=== PATIENT | female | born 1965 | race Caucasian/White ===

== ENCOUNTER 2019-05-14 22:29 | Inpatient (IN) | payer SELFPAY ==
[~2019-05-14] VITALS: Ht 167.6 cm; Wt 97.1 kg
[2019-05-15] VITALS (7 sets, daily range): BP systolic 122–182; BP diastolic 53–100
[2019-05-15] MEDS ORDERED: hydrALAZINE 20 MG/ML VIAL. IVP PRN (01:30)
[2019-05-15] MEDS: ONDANSETRON PF 4 MG/2 ML VIAL. IV PRN ×2 (01:43→09:51)
[2019-05-15] MEDS: fentaNYL PF VIAL 100 MCG/2 ML VIAL IV PRN ×2 (01:44→09:52)
[2019-05-15] MEDS: IV NORMAL SALINE 1000ML BAG 1,000 ML IV SCH ×3 (01:45→21:42)
[2019-05-15] MEDS ORDERED: METF500T11 PO (03:53)
[2019-05-15] MEDS ORDERED: LISI1TAB20 PO (03:53)
--- NOTE | 2019-05-15 03:54 | NUR ---
Pt. arrived on unit at 0048 by gurney. SMITH. Pt. does not complain of pain but states she is "uncomfortable." Admission assessment done at this time. Pt. was able to walk to the bathroom ad sami. Call light within reach and bed in lowest position. Dr. Mi was paged for admission orders. Will continue to monitor.
[2019-05-15 04:59] LABS: BASO # 0.1 x10^3/uL (0.0-0.2); BASO % 0 % (0-3); EOS # 0.2 x10^3/uL (0.0-0.7); EOS % 1 % (0-3); HEMATOCRIT 38.8 % (36.0-47.0); HEMOGLOBIN 12.8 g/dL (12.0-15.5); LYMPH # 1.7 x10^3/uL (1.0-4.8); LYMPH % 11 % (24-48); MEAN CORPUSCULAR HEMOGLOBIN 27 pg (25-35); MEAN CORPUSCULAR HGB CONC 33 g/dL (31-37); MEAN CORPUSCULAR VOLUME 82 fL (79-100); MONO # 1.1 x10^3/uL (0.0-1.1); MONO % 8 % (0-9); NEUT # 11.5 x10^3/uL (1.8-7.7); NEUT % 79 % (31-73); PLATELET COUNT 349 x10^3/uL (140-400); RED BLOOD COUNT 4.75 x10^6/uL (3.50-5.40); RED CELL DISTRIBUTION WIDTH 16.1 % (11.5-14.5); WHITE BLOOD COUNT 14.5 x10^3/uL (4.0-11.0)
[2019-05-15 05:16] LABS: ALBUMIN 3.2 g/dL (3.4-5.0); ALBUMIN/GLOBULIN RATIO 0.8 (1.0-1.7); CALCIUM 8.7 mg/dL (8.5-10.1); CREATININE 0.7 mg/dL (0.6-1.0); GFR 87.9; POTASSIUM 3.5 mmol/L (3.5-5.1); TOTAL BILIRUBIN 0.3 mg/dL (0.2-1.0); TOTAL PROTEIN 7.3 g/dL (6.4-8.2)
--- NOTE | 2019-05-15 07:29 | NUR ---
Pt. states she is not allergic to oxycodone and tylenol. Allergies were taken off of oct. Ileana RN was notified of changes.
--- NOTE | 2019-05-15 10:19 | HP ---
ADMIT DATE: 05/15/2019 HISTORY OF PRESENT ILLNESS: The patient is a 53-year-old female patient who was seen last night at [facility] Emergency Room with a complaint of severe right upper quadrant pain. She also complained of recurrent bouts of nausea, vomiting, and she stopped taking her medication for blood pressure and hypertension as she has been extremely nauseous. She apparently was seen on 04/10/[address] [facility]. At that time, she apparently was diagnosed with acute cholecystitis. At that time, she was found to have cholelithiasis with borderline gallbladder wall thickening and she has a large calcified stone in the gallbladder neck. However, at that time there is no pericholecystic fluid. Images of her pelvis showed that there is somewhat heterogenous enlarged uterus, urinary bladder is nondistended, no free fluid or free air. She has scattered diverticula within the distal colon. She was offered surgery at that time, but she declined as she has just started a new job and was trying to postpone the treatment; however, over the last week. She has been complaining of worsening abdominal pain and inability to eat or take her medication and therefore, she was evaluated again in the Emergency Room last night and her lab work showed that she has mild leukocytosis and was transferred to [facility] to consult the surgical team for laparoscopic cholecystectomy. When I saw her this morning, she continued to complain of severe pain and also nausea, but no vomiting. Denied any fevers, chills, or rigors. PAST MEDICAL HISTORY: Significant for hypertension and type 2 diabetes. PAST SURGICAL HISTORY: Significant for left total knee arthroplasty, appendectomy, and bilateral myringotomy. ALLERGIES: SHE IS ALLERGIC TO PERCOCET. MEDICATIONS: She is currently on lisinopril 20/25 one tablet once a day and metformin 500 mg twice a day. FAMILY HISTORY: She has one sister who has irritable bowel syndrome and brother, who is healthy. Her father at the age of 63 because of complication of diabetes. Mother of cerebrovascular accident and was seemed to be cholangiocarcinoma. SOCIAL HISTORY: She is single, has one daughter. She continued to smoke up to a pack a day, does not drink alcohol or use recreational drugs. 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 PHYSICAL EXAMINATION: GENERAL: On examining her this morning, she was resting almost flat in bed, in no apparent respiratory distress. No pallor, jaundice, cyanosis, or thyromegaly. No jugular venous distension. No limb edema. VITAL SIGNS: Her heart rate was 66, blood pressure was 169/75, temperature was 98, respiratory rate was 18, and oxygen saturation was 94% on room air. HEAD, EYES, EARS, NOSE AND THROAT: Showed normocephalic and atraumatic. NECK: Supple. CARDIAC: Showed normal first and second heart sounds. No gallop or murmur. CHEST: Clear to auscultation. No crepitation or rhonchi. ABDOMEN: Distended, soft and nontender. No guarding or rigidity. No organomegaly. All hernial orifices are intact. Bowel sounds are present. She has tenderness mostly in the right upper quadrant. NEUROLOGIC: She is awake, alert, responding appropriately. All cranial nerves are intact. EXTREMITIES: She moves extremities without difficulty. She ambulates without assistance or assistive devices. LABORATORY DATA: Showed a white cell count of 14,500, hemoglobin 12.8, hematocrit 38.8, MCV 82, and platelet count of 349,000 with normal manual differential. Her serum sodium was 138, potassium 3.5, chloride 103, bicarbonate 27, anion gap of 8, BUN 10, creatinine 0.3, estimated GFR was 88 mL per minute, her glucose was 177, and calcium was 8.7. Total bilirubin, AST, ALT were normal, alkaline phosphatase slightly elevated, total protein was 7.3, and albumin was 3.2. ASSESSMENT AND PLAN: In summary, this is a 53-year-old female patient, who has acute cholecystitis. Other medical problems include hypertension and type 2 diabetes. PLAN: Plan is to keep her n.p.o., continue with IV fluid, and IV pain medication. I will also add IV antibiotic as she has leukocytosis and we have consulted the surgical team for definitive surgery in the form of laparoscopic cholecystectomy. ANNE-MARIE ROJAS MD DR: CHRISTOPHER/anaid JOB#: [id number] / [id number]
[2019-05-15] MEDS ORDERED: IV RINGERS,LACTATED 1000ML 1,000 ML IV SCH (10:53)
[2019-05-15] MEDS ORDERED: HYDROmorphone 2 MG/ML VIAL IV PRN (11:00)
[2019-05-15] MEDS ORDERED: ONDANSETRON PF 4 MG/2 ML VIAL. IV PRN (11:00)
[2019-05-15] MEDS ORDERED: MORPHINE SULFATE 2 MG/ML VIAL. IV PRN (11:00)
[2019-05-15] MEDS ORDERED: PROCHLORPERAZINE 10 MG/2 ML VIAL. IV PRN (11:00)
[2019-05-15] MEDS ORDERED: fentaNYL PF VIAL 100 MCG/2 ML VIAL IV PRN ×2 (11:00)
[2019-05-15] MEDS ORDERED: SURGICEL HEMOSTAT 4X8 EACH. ONE (11:46)
[2019-05-15] MEDS ORDERED: IOHEXOL 300 MG/ML 50 ML VIAL. ONE (11:46)
[2019-05-15] MEDS ORDERED: BUPIVACAINE MPF 0.5% 30 ML VIAL. ONE (11:46)
[2019-05-15] MEDS ORDERED: DEXAMETHASONE SOD PHOS 4 MG/ML VIAL ONE (12:06)
[2019-05-15] MEDS ORDERED: ONDANSETRON PF 4 MG/2 ML VIAL. ONE (12:06)
[2019-05-15] MEDS ORDERED: PROPOFOL 20 ML IV ONE (12:06)
[2019-05-15] MEDS ORDERED: LIDOCAINE 2% PF 5 ML VIAL. ONE (12:06)
[2019-05-15] MEDS ORDERED: fentaNYL PF VIAL 100 MCG/2 ML VIAL ONE ×2 (12:07→13:42)
[2019-05-15] MEDS ORDERED: ROCURONIUM 50 MG/5 ML VIAL. ONE (12:07)
[2019-05-15] MEDS ORDERED: NEOSTIGMINE METHYLSULFATE 5 MG/5 ML SYRINGE. ONE (12:13)
[2019-05-15] MEDS ORDERED: GLYCOPYRROLATE 1 MG/5 ML VIAL. ONE (12:13)
--- NOTE | 2019-05-15 12:33 | PDOC2 ---
CONSULT Date of Consult Date of Consult DATE: 05/15/19 TIME: 12:29 History of Present Illness Reason for Visit: The patient is a 53 year old female who reported to the ER at [facility] due to abdominal pain. She's been experiencing similar bouts of pain since last month. At that time she was diagnosed with gallstones with recommendation for surgical intervention. She postponed pursuing treatment but continued to have problems. She describes bouts of pain in the upper abdomen with radiation to the chest and back. She has had some nausea and worse symptoms after eating. While in the ER a CT scan was done showing gallstones and likely inflammatory changes. Past Medical History Past Medical History diabetes, hypertension Past Surgical History Past Surgical History appendectomy, knee surgery, ear surgery as a child Social History <1 pack per day ALCOHOL: rare Current Medications Current Medications Current Medications Hydralazine HCl (Apresoline Inj) 10 mg PRN Q4HRS PRN IVP ELEVATED BP, SEE COMMENTS; Start 05/15/19 at 01:30 Ondansetron HCl (Zofran) 4 mg PRN Q6HRS PRN IV NAUSEA/VOMITING Last administered on 05/15/19at 09:52; Start 05/15/19 at 01:30 Sodium Chloride 1,000 ml @ 100 mls/hr Q10H IV Last administered on 05/15/19at 12:00; Start 05/15/19 at 01:30 Fentanyl Citrate (Fentanyl 2ml Vial) 50 mcg PRN Q3HRS PRN IV PAIN Last administered on 05/15/19at 09:52; Start 05/15/19 at 01:30 Ondansetron HCl (Zofran) 4 mg PRN Q6HRS PRN IV NAUSEA/VOMITING; Start 05/15/19 at 11:00; Stop 05/15/19 at 20:00 Fentanyl Citrate (Fentanyl 2ml Vial) 25 mcg PRN Q5MIN PRN IV MILD PAIN 1-3; Start 05/15/19 at 11:00; Stop 05/15/19 at 20:00 Fentanyl Citrate (Fentanyl 2ml Vial) 50 mcg PRN Q5MIN PRN IV MODERATE TO SEVERE PAIN; Start 05/15/19 at 11:00; Stop 05/15/19 at 20:00 Morphine Sulfate (Morphine Sulfate) 1 mg PRN Q10MIN PRN IV SEVERE PAIN 7-10; Start 05/15/19 at 11:00; Stop 05/15/19 at 20:00 Ringer's Solution 1,000 ml @ 30 mls/hr Q24H IV ; Start 05/15/19 at 10:53; Stop 05/15/19 at 22:52 Hydromorphone HCl (Dilaudid) 0.5 mg PRN Q10MIN PRN IV SEV PAIN, Second choice; Start 05/15/19 at 11:00; Stop 05/15/19 at 20:00 Prochlorperazine Edisylate (Compazine) 5 mg PACU PRN PRN IV NAUSEA, MRX1; Start 05/15/19 at 11:00; Stop 05/15/19 at 20:00 Iohexol (Omnipaque 300 Mg/ml) 50 ml STK-MED ONCE .ROUTE ; Start 05/15/19 at 11:46; Stop 05/15/19 at 11:46; Status DC Cellulose (Surgicel Hemostat 4x8) 1 each STK-MED ONCE .ROUTE ; Start 05/15/19 at 11:46; Stop 05/15/19 at 11:47; Status DC Bupivacaine HCl (Sensorcaine Mpf 0.5%) 30 ml STK-MED ONCE .ROUTE ; Start 04/26 09/12 at 11:46; Stop 05/15/19 at 11:47; Status DC Ondansetron HCl (Zofran) 4 mg STK-MED ONCE .ROUTE ; Start 05/15/19 at 12:06; Stop 05/15/19 at 12:07; Status DC Propofol 20 ml @ As Directed STK-MED ONCE IV ; Start 05/15/19 at 12:06; Stop 05/15/19 at 12:07; Status DC Lidocaine HCl (Lidocaine Pf 2% Vial) 5 ml STK-MED ONCE .ROUTE ; Start 05/15/19 at 12:06; Stop 05/15/19 at 12:07; Status DC Dexamethasone Sodium Phosphate (Decadron) 4 mg STK-MED ONCE .ROUTE ; Start 05/15/19 at 12:06; Stop 05/15/19 at 12:07; Status DC Fentanyl Citrate (Fentanyl 2ml Vial) 100 mcg STK-MED ONCE .ROUTE ; Start 05/15/19 at 12:07; Stop 05/15/19 at 12:07; Status DC Rocuronium Powell (Zemuron) 50 mg STK-MED ONCE .ROUTE ; Start 05/15/19 at 12:07; Stop 05/15/19 at 12:07; Status DC Glycopyrrolate (Robinul) 1 mg STK-MED ONCE .ROUTE ; Start 05/15/19 at 12:13; Stop 05/15/19 at 12:13; Status DC Neostigmine Methylsulfate (Neostigmine Methylsulfate) 5 mg STK-MED ONCE .ROUTE ; Start 05/15/19 at 12:13; Stop 05/15/19 at 12:13; Status DC Active Scripts Active Reported Lisinopril-Hctz 20-25 Mg Tab (Lisinopril/Hydrochlorothiazide) 1 Each Tablet 1 Tab PO DAILY Metformin Hcl Er (Metformin Hcl) 500 Mg Tab.er.24h 500 Mg PO BIDWMEALS Allergies Allergies: Coded Allergies: No Known Drug Allergies (Unverified , 05/15/19) ROS PSYCHOLOGICAL ROS: No: Anxiety, Behavioral Disorder, Concentration difficultie, Decreased libido, Depression, Disorientation, Hallucinations, Hostility, Irritablity, Memory difficulties, Mood Swings, Obsessive thoughts, Physical abuse, Sexual abuse, Sleep disturbances, Suicidal ideation, Other Eyes: No Blurry vision, No Decreased vision, No Double vision, No Dry eyes, No Excessive tearing, No Eye Pain, No Itchy Eyes, No Loss of vision, No Photophobia, No Scotomata, No Uses contacts, No Uses glasses, No Other HEENT: No: Heacaches, Visual Changes, Hearing change, Nasal congestion, Nasal d ischarge, Oral lesions, Sinus pain, Sore Throat, Epistaxis, Sneezing, Snoring, Tinnitus, Vertigo, Vocal changes, Other ALLERGY AND IMMUNOLOGY: No: Hives, Insect Bite Sensitivity, Itchy/Watery Eyes, Nasal Congestion, Post Nasal Drip, Seasonal Allergies, Other Hematological and Lymphatic: No: Bleeding Problems, Blood Clots, Blood Transfusions, Brusing, Night Sweats, Pallor, Swollen Lymph Nodes, Other ENDOCRINE: No: Breast Changes, Galactorrhea, Hair Pattern Changes, Hot Flashes, Malaise/lethargy, Mood Swings, Palpitations, Polydipsia/polyuria, Skin Changes, Temperature Intolerance, Unexpected Weight Changes, Other Respiratory: No: Cough, Hemoptysis, Orthopnea, Pleuritic Pain, Shortness of breath, SOB with excertion, Sputum Changes, Stridor, Tachypnea, Wheezing, Other Cardiovascular: No Chest Pain, No Palpitations, No Orthopnea, No Paroxysmal Noc. Dyspnea, No Edema, No Lt Headedness, No Other Gastrointestinal: Yes Nausea, Yes Abdominal Pain Genitourinary: No Dysuria, No Frequency, No Incontinence, No Hematuria, No Retention, No Discharge, No Urgency, No Pain, No Flank Pain, No Other, No , No , No , No , No , No , No Musculoskeletal: No Gait Disturbance, No Joint Pain, No Joint Stiffness, No Anais nt Swelling, No Muscle Pain, No Muscular Weakness, No Pain In:, No Swelling In:, No Other Neurological: No Behavorial Changes, No Bowel/Bladder ControlChng, No Confusion, No Dizziness, No Gait Disturbance, No Headaches, No Impaired Co ord/balance, No Memory Loss, No Numbness/Tingling, No Seizures, No Speech Problems, No Tremors, No Visual Changes, No Weakness, No Other Skin: No Dry Skin, No Eczema, No Hair Changes, No Lumps, No Mole Changes, No Mottling, No Nail Changes, No Pruritus, No Rash, No Skin Lesion Changes, No Other, No Acne Physical Exam General: Alert, Oriented X3 Lungs: Clear to auscultation Heart: Regular rate Abdomen: Soft (obese, tender RUQ) Extremities: No clubbing, No cyanosis Skin: No rashes Neuro: Normal speech, Strength at 5/5 X4 ext Psych/Mental Status: Mental status NL MUSCULOSKELETAL: No deformity Vitals VITALS Vital Signs Date Time Temp Pulse Resp B/P (MAP) Pulse Ox O2 Delivery O2 Flow Rate FiO2 05/15/19 11:00 98.0 75 18 182/100 (127) 97 Room Air 98.0 Labs Labs Laboratory Tests Test 05/15/19 04:35 05/15/19 07:22 05/15/19 07:24 05/15/19 11:28 White Blood Count 14.5 x10^3/uL (4.0-11.0) Red Blood Count 4.75 x10^6/uL (3.50-5.40) Hemoglobin 12.8 g/dL (12.0-15.5) Hematocrit 38.8 % (36.0-47.0) Mean Corpuscular Volume 82 fL (79-100) Mean Corpuscular Hemoglobin 27 pg (25-35) Mean Corpuscular Hemoglobin Concent 33 g/dL (31-37) Red Cell Distribution Width 16.1 % (11.5-14.5) Platelet Count 349 x10^3/uL (140-400) Neutrophils (%) (Auto) 79 % (31-73) Lymphocytes (%) (Auto) 11 % (24-48) Monocytes (%) (Auto) 8 % (0-9) Eosinophils (%) (Auto) 1 % (0-3) Basophils (%) (Auto) 0 % (0-3) Neutrophils # (Auto) 11.5 x10^3/uL (1.8-7.7) Lymphocytes # (Auto) 1.7 x10^3/uL (1.0-4.8) Monocytes # (Auto) 1.1 x10^3/uL (0.0-1.1) Eosinophils # (Auto) 0.2 x10^3/uL (0.0-0.7) Basophils # (Auto) 0.1 x10^3/uL (0.0-0.2) Sodium Level 138 mmol/L (136-145) Potassium Level 3.5 mmol/L (3.5-5.1) Chloride Level 103 mmol/L (98-107) Carbon Dioxide Level 27 mmol/L (21-32) Anion Gap 8 (6-14) Blood Urea Nitrogen 10 mg/dL (7-20) Creatinine 0.7 mg/dL (0.6-1.0) Estimated GFR (Cockcroft-Gault) 87.9 BUN/Creatinine Ratio 14 (6-20) Glucose Level 177 mg/dL (70-99) Calcium Level 8.7 mg/dL (8.5-10.1) Total Bilirubin 0.3 mg/dL (0.2-1.0) Aspartate Amino Transf (AST/SGOT) 25 U/L (15-37) Alanine Aminotransferase (ALT/SGPT) 22 U/L (14-59) Alkaline Phosphatase 128 U/L (46-116) Total Protein 7.3 g/dL (6.4-8.2) Albumin 3.2 g/dL (3.4-5.0) Albumin/Globulin Ratio 0.8 (1.0-1.7) Glucose (Fingerstick) 194 mg/dL (70-99) 184 mg/dL (70-99) 159 mg/dL (70-99) Laboratory Tests Test 05/15/19 04:35 05/15/19 07:22 05/15/19 07:24 05/15/19 11:28 White Blood Count 14.5 x10^3/uL (4.0-11.0) Red Blood Count 4.75 x10^6/uL (3.50-5.40) Hemoglobin 12.8 g/dL (12.0-15.5) Hematocrit 38.8 % (36.0-47.0) Mean Corpuscular Volume 82 fL (79-100) Mean Corpuscular Hemoglobin 27 pg (25-35) Mean Corpuscular Hemoglobin Concent 33 g/dL (31-37) Red Cell Distribution Width 16.1 % (11.5-14.5) Platelet Count 349 x10^3/uL (140-400) Neutrophils (%) (Auto) 79 % (31-73) Lymphocytes (%) (Auto) 11 % (24-48) Monocytes (%) (Auto) 8 % (0-9) Eosinophils (%) (Auto) 1 % (0-3) Basophils (%) (Auto) 0 % (0-3) Neutrophils # (Auto) 11.5 x10^3/uL (1.8-7.7) Lymphocytes # (Auto) 1.7 x10^3/uL (1.0-4.8) Monocytes # (Auto) 1.1 x10^3/uL (0.0-1.1) Eosinophils # (Auto) 0.2 x10^3/uL (0.0-0.7) Basophils # (Auto) 0.1 x10^3/uL (0.0-0.2) Sodium Level 138 mmol/L (136-145) Potassium Level 3.5 mmol/L (3.5-5.1) Chloride Level 103 mmol/L (98-107) Carbon Dioxide Level 27 mmol/L (21-32) Anion Gap 8 (6-14) Blood Urea Nitrogen 10 mg/dL (7-20) Creatinine 0.7 mg/dL (0.6-1.0) Estimated GFR (Cockcroft-Gault) 87.9 BUN/Creatinine Ratio 14 (6-20) Glucose Level 177 mg/dL (70-99) Calcium Level 8.7 mg/dL (8.5-10.1) Total Bilirubin 0.3 mg/dL (0.2-1.0) Aspartate Amino Transf (AST/SGOT) 25 U/L (15-37) Alanine Aminotransferase (ALT/SGPT) 22 U/L (14-59) Alkaline Phosphatase 128 U/L (46-116) Total Protein 7.3 g/dL (6.4-8.2) Albumin 3.2 g/dL (3.4-5.0) Albumin/Globulin Ratio 0.8 (1.0-1.7) Glucose (Fingerstick) 194 mg/dL (70-99) 184 mg/dL (70-99) 159 mg/dL (70-99) Assessment/Plan Assessment/Plan 53 year old female with abdominal pain, suspect calculous cholecystitis. Recommend lap garrison. I reviewed the details and risks of surgery with the patient. She understands and would like to proceed. CELESTINA MANCILLA MD May 15, 2019 12:33
[2019-05-15] MEDS ORDERED: SUCCINYLCHOLINE 200 MG/10 ML VIAL. ONE (13:24)
[2019-05-15] MEDS ORDERED: SEVOFLURANE 61 TO 120 MINUTES. IH ONE (14:10)
--- NOTE | 2019-05-15 14:23 | RAD ---
Intraoperative cholangiogram with fluoroscopy: Reason for examination: Laparoscopic cholecystectomy. Intraoperative cholangiogram was performed with fluoroscopy. Total fluoroscopic time was 0.1 minute. 2 images were obtained. Contrast was administered into the cystic duct remnant and there is filling of the common bile duct with drainage into the duodenum. No retained stones were identified. IMPRESSION: Common bile duct is patent to the duodenum. No retained stones evident on intraoperative cholangiogram. Electronically signed by: Edith Post MD (05/15/2019 2:20 PM) [id number]
[2019-05-15] MEDS ORDERED: KETOROLAC 30 MG/ML VIAL. ONE (14:31)
--- NOTE | 2019-05-15 14:37 | PDOC4 ---
Operative Note Operative Note Operative Note: Preoperative Diagnosis: Acute cholecystitis Postoperative Diagnosis: Same Procedure: Laparoscopic cholecystectomy with intraoperative cholangiogram Surgeon: Diego Train System Operator: Claudia TRONCOSO Anesthesia: Gen. Estimated Blood Loss: 20 mL Specimen: Gallbladder to pathology Drains: None Complications: None Indications: The patient is a 53-year-old female who was admitted with severe upper abdominal pain. Her evaluation is consistent with acute cholecystitis. Surgical treatment was offered by means of a laparoscopic cholecystectomy. The risks of surgery were discussed which include bleeding, infection, bile duct injury, bile leak, pain, the potential for additional surgeries or procedures. The patient understands and would like to proceed. Description: The patient was taken to the operating room and laid supine on the operating table. General anesthesia was performed. The abdomen was prepped with ChloraPrep and draped in a standard surgical fashion. A small infraumbilical incision was made with a scalpel. The Veress needle was then inserted and a pneumoperitoneum was then created. A 5 mm trocar was then inserted and the laparoscope was introduced. In the upper midabdomen an 11 mm trocar was inserted and in the right upper quadrant two 5 mm trochars were inserted. The gallbladder was initially obscured by omentum due to an inflammatory reaction. The omentum was peeled away revealing a thick walled and edematous gallbladder consistent with acute cholecystitis. Approximately 55 mL of bilious fluid was aspirated providing gallbladder decompression. The gallbladder was retracted cephalad. The cystic duct was dissected free from surrounding tissues. One clip was placed on the duct near the gallbladder junction. An opening was made in the duct and a cholangiocatheter placed within and secured with a clip. Using contrast dye and fluoroscopy an intraoperative cholangiogram was performed that appeared unremarkable. The clip and catheter were then withdrawn. Two clips were placed on the cystic duct and it was divided. The cystic artery was then identified, dissected free, doubly clipped and divided as well. The gallbladder was then mobilized away from the liver with cautery. A small piece of Surgicel was placed on the upper portion of the gallbladder fossa to assist with hemostasis. The gallbladder was then placed in an endoscopic bag and extracted at the superior trocar site. The fascia there was closed with an 0 PDS sutures. All blood and irrigation fluid was suctioned and hemostasis was good. The remaining ports were removed and the pneumoperitoneum was relieved. The skin incisions were closed using 4-0 Monocryl suture. Steri-Strips and dressings were then applied. The patient tolerated the procedure well and was sent to the recovery room in stable condition. At the end of the case all counts were correct. CELESTINA MANCILLA MD May 15, 2019 14:37
[2019-05-15] MEDS ORDERED: oxyCODONE/APAP 5/325 1 TAB TABLET PO PRN ×2 (14:45)
--- NOTE | 2019-05-15 22:00 | NUR ---
Pt. doing well. Denies need for pain meds currently, has voided and ambulated halls without difficulty. Will continue to monitor.
[2019-05-16 03:03] VITALS: BP 108/54
[2019-05-16 05:57] LABS: HEMATOCRIT 36.8 % (36.0-47.0); HEMOGLOBIN 12.1 g/dL (12.0-15.5); RED BLOOD COUNT 4.52 x10^6/uL (3.50-5.40); WHITE BLOOD COUNT 18.4 x10^3/uL (4.0-11.0)
[2019-05-16 06:18] LABS: ALBUMIN/GLOBULIN RATIO 0.7 (1.0-1.7); CREATININE 0.7 mg/dL (0.6-1.0); GFR 87.9; POTASSIUM 3.7 mmol/L (3.5-5.1); TOTAL BILIRUBIN 0.3 mg/dL (0.2-1.0); TOTAL PROTEIN 7.2 g/dL (6.4-8.2)
[2019-05-16 07:00] VITALS: BP 138/72
[2019-05-16] MEDS: IV NORMAL SALINE 1000ML BAG 1,000 ML IV SCH (07:23)
[2019-05-16] MEDS ORDERED: hydroCHLOROthiazide 25 MG TABLET PO SCH (09:00)
[2019-05-16] MEDS ORDERED: LISINOPRIL 20 MG TABLET PO SCH (09:00)
--- NOTE | 2019-05-16 10:33 | PDOC ---
PROGRESS NOTES Subjective Subjective doing well Objective Objective Vital Signs Date Time Temp Pulse Resp B/P (MAP) Pulse Ox O2 Delivery O2 Flow Rate FiO2 05/16/19 08:24 67 138/72 05/16/19 07:35 Room Air 05/16/19 07:00 98.1 16 96 98.1 05/15/19 16:15 2 Intake and Output 05/16/19 07:00 Intake Total 3380 ml Output Total 70 ml Balance 3310 ml Intake Oral 830 ml IV Total 2550 ml Output Urine Total 50 ml Estimated Blood Loss 20 ml # Voids 2 Physical Exam Abdomen: Soft Assessment Assessment acute cholecystitis, POD 1 lap garrison Plan Plan of Care ok to discharge Comment Review of Relevant I have reviewed the following items francis (where applicable) has been applied. Labs Laboratory Tests Test 05/15/19 04:35 05/15/19 07:22 05/15/19 07:24 05/15/19 11:28 White Blood Count 14.5 x10^3/uL (4.0-11.0) Red Blood Count 4.75 x10^6/uL (3.50-5.40) Hemoglobin 12.8 g/dL (12.0-15.5) Hematocrit 38.8 % (36.0-47.0) Mean Corpuscular Volume 82 fL (79-100) Mean Corpuscular Hemoglobin 27 pg (25-35) Mean Corpuscular Hemoglobin Concent 33 g/dL (31-37) Red Cell Distribution Width 16.1 % (11.5-14.5) Platelet Count 349 x10^3/uL (140-400) Neutrophils (%) (Auto) 79 % (31-73) Lymphocytes (%) (Auto) 11 % (24-48) Monocytes (%) (Auto) 8 % (0-9) Eosinophils (%) (Auto) 1 % (0-3) Basophils (%) (Auto) 0 % (0-3) Neutrophils # (Auto) 11.5 x10^3/uL (1.8-7.7) Lymphocytes # (Auto) 1.7 x10^3/uL (1.0-4.8) Monocytes # (Auto) 1.1 x10^3/uL (0.0-1.1) Eosinophils # (Auto) 0.2 x10^3/uL (0.0-0.7) Basophils # (Auto) 0.1 x10^3/uL (0.0-0.2) Sodium Level 138 mmol/L (136-145) Potassium Level 3.5 mmol/L (3.5-5.1) Chloride Level 103 mmol/L (98-107) Carbon Dioxide Level 27 mmol/L (21-32) Anion Gap 8 (6-14) Blood Urea Nitrogen 10 mg/dL (7-20) Creatinine 0.7 mg/dL (0.6-1.0) Estimated GFR (Cockcroft-Gault) 87.9 BUN/Creatinine Ratio 14 (6-20) Glucose Level 177 mg/dL (70-99) Calcium Level 8.7 mg/dL (8.5-10.1) Total Bilirubin 0.3 mg/dL (0.2-1.0) Aspartate Amino Transf (AST/SGOT) 25 U/L (15-37) Alanine Aminotransferase (ALT/SGPT) 22 U/L (14-59) Alkaline Phosphatase 128 U/L (46-116) Total Protein 7.3 g/dL (6.4-8.2) Albumin 3.2 g/dL (3.4-5.0) Albumin/Globulin Ratio 0.8 (1.0-1.7) Glucose (Fingerstick) 194 mg/dL (70-99) 184 mg/dL (70-99) 159 mg/dL (70-99) Test 05/15/19 15:50 05/15/19 17:18 05/15/19 20:32 05/16/19 05:25 Glucose (Fingerstick) 170 mg/dL (70-99) 196 mg/dL (70-99) 270 mg/dL (70-99) White Blood Count 18.4 x10^3/uL (4.0-11.0) Red Blood Count 4.52 x10^6/uL (3.50-5.40) Hemoglobin 12.1 g/dL (12.0-15.5) Hematocrit 36.8 % (36.0-47.0) Mean Corpuscular Volume 81 fL (79-100) Mean Corpuscular Hemoglobin 27 pg (25-35) Mean Corpuscular Hemoglobin Concent 33 g/dL (31-37) Red Cell Distribution Width 16.0 % (11.5-14.5) Platelet Count 368 x10^3/uL (140-400) Sodium Level 138 mmol/L (136-145) Potassium Level 3.7 mmol/L (3.5-5.1) Chloride Level 103 mmol/L (98-107) Carbon Dioxide Level 27 mmol/L (21-32) Anion Gap 8 (6-14) Blood Urea Nitrogen 10 mg/dL (7-20) Creatinine 0.7 mg/dL (0.6-1.0) Estimated GFR (Cockcroft-Gault) 87.9 BUN/Creatinine Ratio 14 (6-20) Glucose Level 184 mg/dL (70-99) Calcium Level 9.0 mg/dL (8.5-10.1) Total Bilirubin 0.3 mg/dL (0.2-1.0) Aspartate Amino Transf (AST/SGOT) 19 U/L (15-37) Alanine Aminotransferase (ALT/SGPT) 23 U/L (14-59) Alkaline Phosphatase 113 U/L (46-116) Total Protein 7.2 g/dL (6.4-8.2) Albumin 3.0 g/dL (3.4-5.0) Albumin/Globulin Ratio 0.7 (1.0-1.7) Lipase 47 U/L (73-393) Test 05/16/19 07:52 Glucose (Fingerstick) 161 mg/dL (70-99) Laboratory Tests Test 05/15/19 11:28 05/15/19 15:50 05/15/19 17:18 05/15/19 20:32 Glucose (Fingerstick) 159 mg/dL (70-99) 170 mg/dL (70-99) 196 mg/dL (70-99) 270 mg/dL (70-99) Test 05/16/19 05:25 05/16/19 07:52 White Blood Count 18.4 x10^3/uL (4.0-11.0) Red Blood Count 4.52 x10^6/uL (3.50-5.40) Hemoglobin 12.1 g/dL (12.0-15.5) Hematocrit 36.8 % (36.0-47.0) Mean Corpuscular Volume 81 fL (79-100) Mean Corpuscular Hemoglobin 27 pg (25-35) Mean Corpuscular Hemoglobin Concent 33 g/dL (31-37) Red Cell Distribution Width 16.0 % (11.5-14.5) Platelet Count 368 x10^3/uL (140-400) Sodium Level 138 mmol/L (136-145) Potassium Level 3.7 mmol/L (3.5-5.1) Chloride Level 103 mmol/L (98-107) Carbon Dioxide Level 27 mmol/L (21-32) Anion Gap 8 (6-14) Blood Urea Nitrogen 10 mg/dL (7-20) Creatinine 0.7 mg/dL (0.6-1.0) Estimated GFR (Cockcroft-Gault) 87.9 BUN/Creatinine Ratio 14 (6-20) Glucose Level 184 mg/dL (70-99) Calcium Level 9.0 mg/dL (8.5-10.1) Total Bilirubin 0.3 mg/dL (0.2-1.0) Aspartate Amino Transf (AST/SGOT) 19 U/L (15-37) Alanine Aminotransferase (ALT/SGPT) 23 U/L (14-59) Alkaline Phosphatase 113 U/L (46-116) Total Protein 7.2 g/dL (6.4-8.2) Albumin 3.0 g/dL (3.4-5.0) Albumin/Globulin Ratio 0.7 (1.0-1.7) Lipase 47 U/L (73-393) Glucose (Fingerstick) 161 mg/dL (70-99) Medications Current Medications Hydralazine HCl (Apresoline Inj) 10 mg PRN Q4HRS PRN IVP ELEVATED BP, SEE COMMENTS; Start 05/15/19 at 01:30 Ondansetron HCl (Zofran) 4 mg PRN Q6HRS PRN IV NAUSEA/VOMITING Last administered on 05/15/19 09:52; Start 05/15/19 at 01:30 Sodium Chloride 1,000 ml @ 100 mls/hr Q10H IV Last administered on 05/16/19at 07:23; Start 05/15/19 at 01:30 Fentanyl Citrate (Fentanyl 2ml Vial) 50 mcg PRN Q3HRS PRN IV PAIN Last adminis tered on 05/15/19at 09:52; Start 05/15/19 at 01:30 Ondansetron HCl (Zofran) 4 mg PRN Q6HRS PRN IV NAUSEA/VOMITING; Start 05/15/19 at 11:00; Stop 05/15/19 at 20:00; Status DC Fentanyl Citrate (Fentanyl 2ml Vial) 25 mcg PRN Q5MIN PRN IV MILD PAIN 1-3; Start 05/15/19 at 11:00; Stop 05/15/19 at 20:00; Status DC Fentanyl Citrate (Fentanyl 2ml Vial) 50 mcg PRN Q5MIN PRN IV MODERATE TO SEVERE PAIN; Start 05/15/19 at 11:00; Stop 05/15/19 at 20:00; Status DC Morphine Sulfate (Morphine Sulfate) 1 mg PRN Q10MIN PRN IV SEVERE PAIN 7-10; Start 05/15/19 at 11:00; Stop 05/15/19 at 20:00; Status DC Ringer's Solution 1,000 ml @ 30 mls/hr Q24H IV Last administered on 05/15/19at 15:47; Start 05/15/19 at 10:53; Stop 05/15/19 at 22:52; Status DC Hydromorphone HCl (Dilaudid) 0.5 mg PRN Q10MIN PRN IV SEV PAIN, Second choice; Start 05/15/19 at 11:00; Stop 05/15/19 at 20:00; Status DC Prochlorperazine Edisylate (Compazine) 5 mg PACU PRN PRN IV NAUSEA, MRX1; Start 05/15/19 at 11:00; Stop 05/15/19 at 20:00; Status DC Iohexol (Omnipaque 300 Mg/ml) 50 ml STK-MED ONCE .ROUTE Last administered on 05/15/19at 14:19; Start 05/15/19 at 11:46; Stop 05/15/19 at 11:46; Status DC Cellulose (Surgicel Hemostat 4x8) 1 each STK-MED ONCE .ROUTE Last administered on 05/15/19at 14:19; Start 05/15/19 at 11:46; Stop 05/15/19 at 11:47; Status DC Bupivacaine HCl (Sensorcaine Mpf 0.5%) 30 ml STK-MED ONCE .ROUTE Last adm inistered on 05/15/19at 14:38; Start 05/15/19 at 11:46; Stop 05/15/19 at 11:47; Status DC Ondansetron HCl (Zofran) 4 mg STK-MED ONCE .ROUTE ; Start 05/15/19 at 12:06; Stop 05/15/19 at 12:07; Status DC Propofol 20 ml @ As Directed STK-MED ONCE IV ; Start 05/15/19 at 12:06; Stop 05/15/19 at 12:07; Status DC Lidocaine HCl (Lidocaine Pf 2% Vial) 5 ml STK-MED ONCE .ROUTE ; Start 05/15/19 at 12:06; Stop 05/15/19 at 12:07; Status DC Dexamethasone Sodium Phosphate (Decadron) 4 mg STK-MED ONCE .ROUTE ; Start 04/26 09/12 at 12:06; Stop 05/15/19 at 12:07; Status DC Fentanyl Citrate (Fentanyl 2ml Vial) 100 mcg STK-MED ONCE .ROUTE ; Start 05/15 at 12:07; Stop 05/15/19 at 12:07; Status DC Rocuronium [place] (Zemuron) 50 mg STK-MED ONCE .ROUTE ; Start 05/15/19 at 12:0 7; Stop 05/15/19 at 12:07; Status DC Glycopyrrolate (Robinul) 1 mg STK-MED ONCE .ROUTE ; Start 05/15/19 at 12:13; Stop 05/15/19 at 12:13; Status DC Neostigmine Methylsulfate (Neostigmine Methylsulfate) 5 mg STK-MED ONCE .ROUTE ; Start 05/15/19 at 12:13; Stop 05/15/19 at 12:13; Status DC Cefazolin Sodium/ Dextrose 50 ml @ 100 mls/hr 1X ONCE IV Last administered on 05/15/19at 13:56; Start 05/15/19 at 12:30; Stop 05/15/19 at 12:59; Status DC Succinylcholine Chloride (Anectine) 200 mg STK-MED ONCE .ROUTE ; Start 05/15/19 at 13:24; Stop 05/15/19 at 13:24; Status DC Fentanyl Citrate (Fentanyl 2ml Vial) 100 mcg STK-MED ONCE .ROUTE ; Start 05/15/19 at 13:42; Stop 05/15/19 at 13:42; Status DC Sevoflurane (Ultane) 60 ml STK-MED ONCE IH ; Start 05/15/19 at 14:10; Stop 05/15/19 at 14:11; Status DC Ketorolac Tromethamine (Toradol 30mg Vial) 30 mg STK-MED ONCE .ROUTE ; Start 05/15/19 at 14:31; Stop 05/15/19 at 14:31; Status DC Oxycodone/ Acetaminophen (Percocet 5/325) 1 tab PRN Q4HRS PRN PO MILD PAIN 1-3 Last administered on 05/15/19at 19:22; Start 05/15/19 at 14:45 Oxycodone/ Acetaminophen (Percocet 5/325) 2 tab PRN Q4HRS PRN PO MODERATE- SEVERE PAIN; Start 05/15/19 at 14:45 Lisinopril (Prinivil) 20 mg DAILY PO Last administered on 05/16/19at 08:24; Start 05/16/19 at 09:00 Hydrochlorothiazide (Hydrodiuril) 25 mg DAILY PO Last administered on 05/16/19at 08:24; Start 05/16/19 at 09:00 Active Scripts Active Reported Lisinopril-Hctz 20-25 Mg Tab (Lisinopril/Hydrochlorothiazide) 1 Each Tablet 1 Tab PO DAILY Metformin Hcl Er (Metformin Hcl) 500 Mg Tab.er.24h 500 Mg PO BIDWMEALS Vitals/I & O Vital Sign - Last 24 Hours 05/15/19 05/15/19 05/15/19 05/15/19 11:00 12:39 14:49 15:00 Temp 98.0 98.1 97.4 98.0 98.1 97.4 Pulse 75 71 67 Resp 18 20 20 B/P (MAP) 182/100 (127) 147/87 151/81 Pulse Ox 97 94 100 O2 Delivery Room Air Room Air Room Air Mask O2 Flow Rate 10 10 05/15/19 05/15/19 05/15/19 05/15/19 15:04 15:19 15:34 15:49 Temp 98.1 97.4 97.4 98.9 98.1 97.4 97.4 98.9 Pulse 63 63 72 72 Resp 18 B/P (MAP) 131/71 128/74 139/79 134/87 Pulse Ox 100 100 90 93 O2 Delivery Room Air Simple Mask Room Air Nasal Cannula O2 Flow Rate 10 10 2 05/15/19 05/15/19 05/15/19 05/15/19 16:04 16:15 17:00 19:00 Temp 98.9 98.2 98.9 98.2 Pulse 74 78 Resp 18 18 B/P (MAP) 144/89 144/90 (108) Pulse Ox 95 98 O2 Delivery Nasal Cannula Nasal Cannula Room Air Room Air O2 Flow Rate 2 2 05/15/19 05/15/19 05/15/19 05/15/19 19:00 19:22 20:24 23:03 Temp 98.1 98.1 98.1 98.1 Pulse 80 78 Resp 18 17 16 18 B/P (MAP) 149/88 (108) 125/72 (89) Pulse Ox 95 98 98 97 O2 Delivery Room Air Room Air Room Air 05/16/19 05/16/19 05/16/19 05/16/19 03:03 07:00 07:35 08:24 Temp 98.1 98.1 98.1 98.1 Pulse 74 67 67 Resp 16 16 B/P (MAP) 108/54 (72) 138/72 (94) 138/72 Pulse Ox 96 96 O2 Delivery Room Air Room Air Room Air Intake and Output 05/15/19 05/15/19 05/16/19 15:00 23:00 07:00 Intake Total 1250 ml 1650 ml 480 ml Output Total 70 ml Balance 1180 ml 1650 ml 480 ml CELESTINA MANCILLA MD May 16, 2019 10:33
[2019-05-16 11:00] VITALS: BP 139/75
[2019-05-16] MEDS ORDERED: OXYC-325 PO (11:04)
--- NOTE | 2019-05-16 12:45 | NUR ---
Pt discharged home with no additional services. Ambulated to hospital entrance accompanied by friend, leaving in friend's vehicle. Discharge information and education regarding Dx provided to Pt who verbalized understanding. Dressings to lap sites and bigger incision on LUQ removed to assess incisions prior top discharge and Pt requested to have new dressings applied. Pt instructed to remove all dressings by tomorrow and leave [employer] with steri strips. Pt requested something to show her employer to return to work on May 24. Dr Diego parmar, orders received and written as indicated. No changes from previous assessment.
--- NOTE | 2019-05-16 13:48 | PN ---
DATE: 05/16/2019 SUBJECTIVE: The patient is a 53-year-old female patient who was admitted through the Emergency Room of [facility] with a complaint of right upper quadrant pain and recurrent bouts of nausea and vomiting. She has been diagnosed before with acute cholecystitis, but at times refused to admission and she was seen by the surgical team and underwent a laparoscopic cholecystectomy successfully. When I saw her this morning, she looked well, apparent respiratory distress. She has denied any pain. Denied any nausea or vomiting. She is tolerating her food. When I examined her, she looked well. Her heart rate was 67, blood pressure was 138/72, temperature was 98.1, respiratory rate was 16, and oxygen saturation was 96%. The rest of clinical examination is stable. LABORATORY DATA: Her white cell count was high at 18,400, hemoglobin 12, hematocrit 36, MCV was 81 and platelet count 368,000. Her chemistry showed a serum sodium 138, potassium 3.7, chloride 103, bicarbonate 27, anion gap of 8, BUN 10, creatinine 0.7, estimated GFR was 88 mL per minute. Her glucose 184, calcium was 9. Total bilirubin, AST, ALT, alkaline phosphatase were normal. She was discharged home to continue on oxycodone/APAP 5/325 one tablet every 4 hours as needed, lisinopril/hydrochlorothiazide 20/25 one tablet once a day, metformin 500 mg twice a day. FINAL DISCHARGE DIAGNOSES: 1. Acute cholecystitis, status post laparoscopic cholecystectomy. 2. Hypertension. 3. Type 2 diabetes. 4. Nicotine addiction. The patient was advised to come to the nearest Emergency Room if she started spiking her temperature of if she has abdominal pain. ANNE-MARIE ROJAS MD DR: CHRISTOPHER/anaid JOB#: [id number] / [id number]
--- NOTE | 2019-05-18 18:06 | PATHOLOGY ---
[facility] Accession Number: [id number] . 01 Material submitted: . gallbladder - GALLBLADDER . 01 Clinical history: . cholecystitis . 02 Diagnosis: Gallbladder, laparoscopic cholecystectomy: - Cholelithiasis. - Acute and chronic cholecystitis with focally increased eosinophils and focal serosal exudate. - Reactive changes and focal lipogranulomata of gallbladder neck lymph node. . (JP:mm; 05/18/2019) [facility] 05/18/2019 1656 Local . 02 Comment: There is no evidence of malignancy. . (JPM:mm; 05/18/2019) . 02 Electronically signed: . Ted Coto MD, Pathologist NPI- [id number] . 01 Gross description: . The specimen is received in formalin labeled "Saler, Tuyet, gallbladder" and consists of an intact, rosen-brown gallbladder measuring 9.5 cm in length and up to 3.2 cm in diameter. The gallbladder is partially encased in yellow adipose tissue with white adhesions at the fundus. The margin is inked black. Opening reveals a lumen filled with dark brown/black sludge and a single oval green-brown calculus measuring 3.5 x 2.3 cm. The mucosa is hemorrhagic rosen-brown with an average wall thickness of 0.2 cm. There is a defect in the wall at the fundus measuring 1.0 cm which correlates to the overlying white adhesions. No masses are identified. Adjacent the gallbladder neck is a lymph node measuring 1.3 x 1.0 cm showing rosen cut surfaces. Slurry Blender sections are submitted in A1-A4. (SDY; 05/17/2019) SYU/SYU 05/17/2019 1653 Local . 02 Pathologist provided ICD-10: K80.12 . 02 CPT . 047354 Specimen Comment: A courtesy copy of this report has been sent to Specimen Comment: [phone], . Specimen Comment: Report sent to / DR ROJAS Performed at: 01 [facility] [address], [place] [id number] MD Justice Chaves MD Phone: [phone] Performed at: 02 [facility] [address] [place], [place] [id number] MD Ted Coto MD Phone: [phone]
== END 2019-05-16 12:45 | disposition home or self-care (01) | DRG 419 ==
LOC: 4 NORTH 05-15 01:03
PROVIDERS: ADMIT Internal Medicine; ATTEND Internal Medicine
PROC: BF101ZZ Fluoroscopy of Bile Ducts using Low Osmolar Contrast (ICD-10-PCS; 2019-05-15)
PROC: 0FT44ZZ Resection of Gallbladder, Percutaneous Endoscopic Approach (ICD-10-PCS; principal; 2019-05-15 12:00)
DX: K80.00 Calculus of gallbladder with acute cholecystitis without obstruction (principal); I10 Essential (primary) hypertension; E11.9 Type 2 diabetes mellitus without complications; F17.210 Nicotine dependence, cigarettes, uncomplicated; N85.2 Hypertrophy of uterus; Z96.652 Presence of left artificial knee joint; Z88.8 Allergy status to other drugs, medicaments and biological substances; Z90.49 Acquired absence of other specified parts of digestive tract; Z79.899 Other long term (current) drug therapy; Z83.3 Family history of diabetes mellitus; Z82.3 Family history of stroke; Z80.0 Family history of malignant neoplasm of digestive organs; Z79.84 Long term (current) use of oral hypoglycemic drugs
CPT/HCPCS: 36415; 74300; 80053; 82962; 83690; 85025; 85027; 88304; A7015; J0330; J0696; J1100; J1885; J2001; J2405; J2704; J2710; J3010; J3490; J7030; J7120; Q9967; G0378